=== PATIENT | female | born 1940 | race Caucasian/White ===

== ENCOUNTER 2024-06-12 21:00 | Inpatient (IN) | payer MEDICARE ==
[2024-06-13] MEDS ORDERED: KETOROLAC 15 MG/ML 1 ML VIAL ONE (18:49)
[2024-06-14] MEDS ORDERED: KETOROLAC 15 MG/ML 1 ML VIAL ONE ×2 (01:45→20:52)
[2024-06-16] MEDS ORDERED: LEVOTHYROXINE 75 MCG TAB ONE (06:29)
[2024-06-16] MEDS ORDERED: MULTIVITAMINS, THERA 1 EACH TAB ONE (08:46)
--- NOTE | 2024-07-19 13:06 | XR ---
EXAM: XR Chest, 1 View CLINICAL HISTORY: NGT placement TECHNIQUE: Frontal view of the chest. COMPARISON: No relevant prior studies available. FINDINGS: Lungs:No definite focal airspace consolidation, accounting for limitations with prominent overlying soft tissues in the inferior lung zone. The pulmonary vasculature is unremarkable. Pleural space:Unremarkable. No pneumothorax. No large pleural effusion. Heart:Unremarkable. No cardiomegaly. Mediastinum:No significant abnormality identified. The trachea is midline. Bones/joints:Unremarkable. No acute fracture. Tubes, lines and devices: The nasogastric tube terminates in the mid body of the stomach. IMPRESSION: The nasogastric tube terminates in the mid body of the stomach. Radiologist: Hai Garcia MD Electronically Signed: 06/13/24 03:43 Study ready at 02:09 and initial results transmitted at 03:43 [facility]
== END 2024-06-16 14:49 | disposition home or self-care (01) | DRG 390 ==
LOC: EC 21:00 → 4SSUR 22:02
PROVIDERS: ADMIT Hospitalist; ATTEND Hospitalist
PROC: 0D9670Z Drainage of Stomach with Drainage Device, Via Natural or Artificial Opening (ICD-10-PCS; principal; 2024-06-12)
DX: K56.600 Partial intestinal obstruction, unspecified as to cause (principal); E03.9 Hypothyroidism, unspecified; E86.1 Hypovolemia; H91.90 Unspecified hearing loss, unspecified ear; Z79.890 Hormone replacement therapy; M43.16 Spondylolisthesis, lumbar region; M51.37 Other intervertebral disc degeneration, lumbosacral region; K44.9 Diaphragmatic hernia without obstruction or gangrene; Z90.49 Acquired absence of other specified parts of digestive tract; Z88.1 Allergy status to other antibiotic agents; Z88.2 Allergy status to sulfonamides; Z91.048 Other nonmedicinal substance allergy status
CPT/HCPCS: 71045